=== PATIENT | female | born 2000 | race Two or more races ===

== ENCOUNTER 2021-04-03 12:52 | Emergency (ER) | payer SELFPAY ==
[~2021-04-03] VITALS: Ht 162.6 cm; Wt 77.1 kg
== END 2021-04-03 15:33 | disposition home or self-care (01) ==
LOC: ED 12:52
DX: S06.0X0A Concussion without loss of consciousness, initial encounter (principal); W17.89XA Other fall from one level to another, initial encounter
CPT/HCPCS: 70450; 84703; 99284-25

== ENCOUNTER 2024-07-26 15:53 | Emergency (ER) | payer OTHER ==
[~2024-07-26] VITALS: Ht 162.6 cm; Wt 80.4 kg
[~2024-07-26 15:53] MED LIST: NARCAN4 MG NAS
[2024-07-26 16:31] LABS: BASOPHILS 0.4 % (0-2); EOSINOPHILS 1.3 % (0-6); HEMATOCRIT 38.3 % (35.0-50.0); HEMOGLOBIN 13.3 g/dL (12.0-18.0); LYMPHOCYTES 28.6 % (24-44); MCH 32.5 (27-36); MCHC 34.8 g/dl (30-36); MCV 93.5 fl (81-99); MONOCYTES 9.9 % (0-12); NEUTROPHILS 59.8 % (39-80); PLATELET COUNT 276 K/uL (140-440); RDW 12.6 (10.5-15.0)
[2024-07-26 17:02] LABS: ACETAMINOPHEN 0 ug/mL (10-30); ALBUMIN 3.5 g/dL (3.4-5.0); ALBUMIN/GLOBULIN RATIO 0.81 (1.1-2.4); ALCOHOL, MEDICAL 6 ng/dL (<3); ALKALINE PHOSPHATASE 81 U/L (46-116); ALT (SGPT) 143 U/L (14-59); ANION GAP 13.2 (7-21); AST (SGOT) 77 U/L (15-37); BILIRUBIN, TOTAL 0.2 ng/dL (0.2-1.0); BUN/CREATININE RATIO 13.15 (6.0-28.6); CALCIUM 8.8 mg/dL (8.5-10.1); CARBON DIOXIDE 29 mmol/L (21-32); CHLORIDE 102 mmol/L (98-107); CREATININE, SERUM 0.76 mg/dL (0.55-1.02); GLOMERULAR FILTRATION RATE,EST 111 mL/min (>60); POTASSIUM 4.2 mmol/L (3.5-5.1); PROTEIN, TOTAL 7.8 g/dL (6.4-8.2); TSH, 3RD GENERATION 1.562 uIU/mL (0.358-3.740); UREA NITROGEN 10 mg/dL (7-18)
[2024-07-26 17:02] LABS: BILIRUBIN, URINE NEGATIVE (negative); BLOOD/HGB, URINE NEGATIVE (Negative); KETONE, URINE NEGATIVE (Negative); LEUK ESTERASE, URINE NEGATIVE (negative); NITRITE, URINE NEGATIVE (negative)
[2024-07-26 17:16] LABS: AMPHETAMINES, URINE NEGATIVE (NEGATIVE); BARBITURATES, URINE NEGATIVE (NEGATIVE); BENZODIAZEPINE, URINE NEGATIVE (NEGATIVE); BUPRENORPHINE, URINE NEGATIVE (NEGATIVE); CANNABINOID, URINE POSITIVE (NEGATIVE); COCAINE, URINE POSITIVE (NEGATIVE); ECSTASY, URINE NEGATIVE (NEGATIVE); FENTANYL, URINE NEGATIVE (NEGATIVE); METHADONE, URINE NEGATIVE (NEGATIVE); OPIATES, URINE NEGATIVE (NEGATIVE); OXYCODONE, URINE NEGATIVE (NEGATIVE); PHENCYCLIDINE, URINE NEGATIVE (NEGATIVE)
[2024-07-26 23:51] LABS: INFLUENZA B NAA NEGATIVE (NEGATIVE); RESPIRATORY SYNCYTIAL VIR NAA NEGATIVE (NEGATIVE)
[2024-07-27 14:16] VITALS: BP 116/47
--- NOTE | 2024-07-27 20:21 | EKG ---
[facility] [address] [facility] [place] [id number] Signed Normal sinus rhythm with sinus arrhythmia Normal ECG No previous ECGs available Confirmed by Galdino Casey MD ([id number]) on 07/27/2024 8:20:52 PM Electronically Signed By: GALDINO CASEY MD 07/27/242020 PATIENT NAME: BIBI REAGAN Electrocardiogram DATE OF : [birth year] PHYSICIAN: GALDINO CASEY MD REPORT #: [id number] REPORT IS CONFIDENTIAL AND NOT TO BE RELEASED WITHOUT AUTHORIZATION
== END 2024-07-27 14:16 | disposition home or self-care (01) ==
LOC: ED 15:53
PROVIDERS: Emergency Medicine
DX: R45.851 Suicidal ideations (principal); F32.A Depression, unspecified; Z04.6 Encounter for general psychiatric examination, requested by authority
CPT/HCPCS: 36415; 80053; 80307; 81003; 84443; 84703; 85025; 87502; 93005; 93010; 99285; G0480; U0002